=== PATIENT | male | born 1945 | race Caucasian/White ===

== ENCOUNTER 2019-11-23 10:21 | Emergency (ER) | payer OTHER, MEDICARE ==
[2019-11-23 10:37] VITALS: BP 134/82; PULSE 86; RESP 18; TEMP 98.3
--- NOTE | 2019-11-23 11:16 | ED ---
Skin/Abscess/FB HPI - General Chief complaint: Skin/Abscess/Foreign Body Stated complaint: Headache Time Seen by Provider: 11/23/19 10:38 Source: patient Mode of arrival: wheelchair Limitations: no limitations - History of Present Illness Initial comments: Patient is a 73-year-old male presenting to emergency Department with complaints of a pain on the back of his scalp area along with a rash 4 days. Patient states she noticed his scalp felt tender approximately 4-5 days ago and then noticed blisters forming in the same area a day later. Patient states he has pushed on some these blisters may have popped with fluid. Patient states he's been trying to take Tylenol for the discomfort but it's not helping. He denies any trauma to his head or any falls. He denies any fever or chills. He has history of COPD, no changes in his symptoms. Patient denies any chest pain or shortness of breath. Patient has no other complaints. He states he has not had shingles previous. - Related Data Home Medications Medication Instructions Recorded Confirmed Albuterol Inhaler (Mhu) [Ventolin 1 - 2 puff INHALATION RT-Q6H PRN 04/14/17 04/14/17 Hfa Inhaler (Mhu)] Aspirin EC [Ecotrin Low Dose] 81 mg PO DAILY 04/14/17 04/14/17 Besifloxacin HCl [Besivance] 1 drop RIGHT EYE TID 04/14/17 04/14/17 Bromfenac Sodium [Prolensa Ophth 1 drop OPHTHALMIC DAILY 04/14/17 04/14/17 Soln] Difluprednate [Durezol] 1 drop RIGHT EYE DAILY 04/14/17 04/14/17 Fexofenadine HCl [Radha Allergy] 180 mg PO DAILY 04/14/17 04/14/17 PARoxetine HCL [Paxil] 40 mg PO DAILY 04/14/17 04/14/17 Tiotropium 18 Mcg/Puff [Spiriva] 1 cap INHALATION RT-DAILY 04/14/17 04/14/17 traMADol HCL [Ultram] 100 mg PO BID PRN 04/14/17 04/14/17 Previous Rx's Medication Instructions Recorded Metoprolol Tartrate [Lopressor] 25 mg PO BID #60 tab 04/15/17 Rivaroxaban [Xarelto] 20 mg PO DAILY #30 tab 04/15/17 Cephalexin [Keflex] 500 mg PO Q6HR 5 Days #20 cap 11/23/19 Lidocaine 2% Gel [Xylocaine Jelly 1 applic TOPICAL BID PRN #1 tube 11/23/19 2%] valACYclovir HCL [Valtrex] 1,000 mg PO Q8HR 7 Days #21 tab 11/23/19 Allergies Allergy/AdvReac Type Severity Reaction Status Date / Time No Known Allergies Allergy Verified 04/14/17 11:53 Review of Systems ROS Statement: Those systems with pertinent positive or pertinent negative responses have been documented in the HPI. ROS Other: All systems not noted in ROS Statement are negative. 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 HEAD: Atraumatic, normocephalic. EYES: Pupils equal round and reactive to light, extraocular movements intact, sclera anicteric, conjunctiva are normal. ENT: TMs normal, nares patent, oropharynx clear without exudates. Moist mucous membranes. NECK: Normal range of motion, supple without lymphadenopathy or JVD. LUNGS: Breath sounds clear to auscultation bilaterally and equal. No wheezes rales or rhonchi. HEART: Regular rate and rhythm without murmurs, rubs or gallops. ABDOMEN: Soft, nontender, normoactive bowel sounds. No guarding, no rebound. No masses appreciated. : Deferred EXTREMITIES: Normal range of motion, no pitting or edema. No clubbing or cyanosis. NEUROLOGICAL: Cranial nerves II through XII grossly intact. Normal speech, normal gait. PSYCH: Normal mood, normal affect. SKIN: Warm, Dry, normal turgor. Patient has multiple erythematous vesicles on the right posterior aspect of his scalp consistent with shingles virus. A few patches seemed to be draining currently and fluid consistent with a secondary bacterial infection. Limitations: no limitations Course Vital Signs 11/23/19 10:32 Temperature 98.3 F Pulse Rate 86 Respiratory 18 Rate Blood Pressure 134/82 O2 Sat by Pulse 94 L Oximetry Medical Decision Making - Medical Decision Making Patient is 73-year-old male presenting with rash consistent with shingles virus on the right posterior scalp along with a secondary mild bacterial infection. Patient will be started on Keflex, Valtrex, as well as a lidocaine gel for disc omfort. He will continue with Tylenol as needed. He'll follow up with his PCP. Patient is agreement with this plan of care. Return parameters were discussed with the patient and he verbalized understanding. Case discussed with Dr. Denney. Disposition Clinical Impression: Shingles rash, Bacterial skin infection, Headache Disposition: HOME SELF-CARE Condition: Stable Instructions (If sedation given, give patient instructions): Shingles (ED) Additional Instructions: Please return to the Emergency Department if symptoms worsen or any other concerns. Take medications as prescribed. Follow up with PCP. Prescriptions: Cephalexin [Keflex] 500 mg PO Q6HR 5 Days #20 cap valACYclovir HCL [Valtrex] 1,000 mg PO Q8HR 7 Days #21 tab Lidocaine 2% Gel [Xylocaine Jelly 2%] 1 applic TOPICAL BID PRN #1 tube PRN Reason: Pain Is patient prescribed a controlled substance at d/c from ED?: No Referrals: [facility],Clinic [Primary Care Provider] - 1-2 days
== END 2019-11-23 11:32 | disposition home or self-care (01) ==
LOC: EC 10:21 → SUPCPDRO 10:21 → EC 11:32
DX: L08.9 Local infection of the skin and subcutaneous tissue, unspecified (principal); B02.9 Zoster without complications; R51 Headache; J44.9 Chronic obstructive pulmonary disease, unspecified; I10 Essential (primary) hypertension; F17.200 Nicotine dependence, unspecified, uncomplicated; Z79.82 Long term (current) use of aspirin; Z79.899 Other long term (current) drug therapy; Z96.652 Presence of left artificial knee joint
CPT/HCPCS: 99283

== ENCOUNTER 2019-12-25 17:24 | Emergency (ER) | payer OTHER, MEDICARE ==
[2019-12-25 17:39] VITALS: BP 138/88; PULSE 87; RESP 18; TEMP 98
[2019-12-25] MEDS ORDERED: MUPIROCIN 2% OINT 22 GM TUBE TOPICAL STA (17:58)
[2019-12-25] MEDS ORDERED: GABAPENTIN 300 MG CAP PO STA (17:58)
--- NOTE | 2019-12-25 18:02 | ED ---
Skin/Abscess/FB HPI - General Chief complaint: Skin/Abscess/Foreign Body Stated complaint: Shingles Time Seen by Provider: 12/25/19 17:41 Source: patient Mode of arrival: ambulatory Limitations: no limitations - History of Present Illness Initial comments: 74-year-old male patient presents to the emergency department today for evaluation of rash and pain to his right scalp. Patient was seen and evaluated 5 weeks ago and diagnosed with shingles. He did complete oral antibiotics, antivirals, and a tube of lidocaine gel. Patient presents today because he is still having the rash, states his hair still hurts to the touch. States he did have a rash over his right ear but that has resolved. Denies any difficulty with hearing. Denies any numbness to the face. Denies fever or chills. Denies any drainage from the scalp lesions. Patient denies any recent cough, shortness of breath, chest pain, abdominal pain, nausea, vomiting, diarrhea, constipation, back pain, numbness, tingling, dizziness, weakness, hematuria, dysuria, urinary urgency, urinary frequency, visual changes, or any other complaints. - Related Data Home Medications Medication Instructions Recorded Confirmed Albuterol Inhaler (Mhu) [Ventolin 1 - 2 puff INHALATION RT-Q6H PRN 04/14/17 04/14/17 Hfa Inhaler (Mhu)] Aspirin EC [Ecotrin Low Dose] 81 mg PO DAILY 04/14/17 04/14/17 Besifloxacin HCl [Besivance] 1 drop RIGHT EYE TID 04/14/17 04/14/17 Bromfenac Sodium [Prolensa Ophth 1 drop OPHTHALMIC DAILY 04/14/17 04/14/17 Soln] Difluprednate [Durezol] 1 drop RIGHT EYE DAILY 04/14/17 04/14/17 Fexofenadine HCl [Radha Allergy] 180 mg PO DAILY 04/14/17 04/14/17 PARoxetine HCL [Paxil] 40 mg PO DAILY 04/14/17 04/14/17 Tiotropium 18 Mcg/Puff [Spiriva] 1 cap INHALATION RT-DAILY 04/14/17 04/14/17 traMADol HCL [Ultram] 100 mg PO BID PRN 04/14/17 04/14/17 Previous Rx's Medication Instructions Recorded Metoprolol Tartrate [Lopressor] 25 mg PO BID #60 tab 04/15/17 Rivaroxaban [Xarelto] 20 mg PO DAILY #30 tab 04/15/17 Cephalexin [Keflex] 500 mg PO Q6HR 5 Days #20 cap 11/23/19 Lidocaine 2% Gel [Xylocaine Jelly 1 applic TOPICAL BID PRN #1 tube 11/23/19 2%] valACYclovir HCL [Valtrex] 1,000 mg PO Q8HR 7 Days #21 tab 11/23/19 Gabapentin [Neurontin] 300 mg PO TID #30 capsule 12/25/19 Allergies Allergy/AdvReac Type Severity Reaction Status Date / Time No Known Allergies Allergy Verified 12/25/19 17:39 Review of Systems ROS Statement: Those systems with pertinent positive or pertinent negative responses have been documented in the HPI. ROS Other: All systems not noted in ROS Statement are negative. 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" Past Anesthesia/Blood Transfusion Reactions: No Reported Reaction Past Psychological History: Anxiety, Depression Smoking Status: Current every day smoker Past Alcohol Use History: None Reported Past Drug Use History: None Reported - Past Family History Mother History Unknown: Yes Father Family Medical History: Coronary Artery Disease (CAD) Additional Family Medical History / Comment(s): " AGE 47 FROM [place]" General Exam Limitations: no limitations General appearance: alert, in no apparent distress, other (This is a well- developed, well-nourished elderly male patient in no acute distress. Vital signs upon presentation are temperature 98.0F, pulse 87, respirations 18, blood pressure 138/88, pulse ox 96% on room air.) Head exam: Present: other (There are skin ulcerations with pink skin at the base. There are some healing vesicles around the edges. ) Eye exam: Present: normal appearance, PERRL, EOMI. Absent: scleral icterus, conjunctival injection, periorbital swelling ENT exam: Present: normal exam, normal oropharynx, mucous membranes moist, TM's normal bilaterally Respiratory exam: Present: normal lung sounds bilaterally. Absent: respiratory distress, wheezes, rales, rhonchi, stridor Cardiovascular Exam: Present: regular rate, normal rhythm, normal heart sounds. Absent: systolic murmur, diastolic murmur, rubs, gallop, clicks Neurological exam: Present: alert, oriented X3, CN II-XII intact Psychiatric exam: Present: normal affect, normal mood Skin exam: Present: warm, dry, intact, normal color. Absent: rash Course Vital Signs 12/25/19 17:35 Temperature 98 F Pulse Rate 87 Respiratory 18 Rate Blood Pressure 138/88 O2 Sat by Pulse 96 Oximetry Medical Decision Making - Medical Decision Making 74-year-old male patient presents to the emergency department today for reevaluation. He was diagnosed with shingles 5 weeks ago. States he is still having mild rash and pain to the right side of his scalp. Physical examination did reveal some skin ulcerations and healing vesicles. Right eardrum appears normal. Patient's symptoms are consistent with postherpetic neuralgia, we'll start gabapentin. He is given mupirocin ointment to apply twice daily. He is given instructions to follow-up with the radiator mechanic. Return parameters were discussed in detail. He verbalizes understanding and agrees with this plan. Disposition Clinical Impression: Postherpetic neuralgia Disposition: HOME SELF-CARE Condition: Good Instructions (If sedation given, give patient instructions): Shingles (ED) Additional Instructions: Apply ointment to the lesions on her scalp. Take gabapentin for pain control. Follow-up with the radiator mechanic for further evaluation of your scalp. Follow- up through primary care physician for recheck in 1-2 days. Return to the emergency department immediately for any new, worsening, or concerning symptoms. Prescriptions: Gabapentin [Neurontin] 300 mg PO TID #30 capsule Is patient prescribed a controlled substance at d/c from ED?: No Referrals: [facility],Clinic [Primary Care Provider] - 1-2 days Hans Escobar MD [STAFF PHYSICIAN] - 1-2 days Time of Disposition: 18:01
== END 2019-12-25 18:30 | disposition home or self-care (01) ==
LOC: EC 17:24
DX: B02.29 Other postherpetic nervous system involvement (principal); J44.9 Chronic obstructive pulmonary disease, unspecified; I10 Essential (primary) hypertension; F17.200 Nicotine dependence, unspecified, uncomplicated; F41.9 Anxiety disorder, unspecified; M19.90 Unspecified osteoarthritis, unspecified site; F32.9 Major depressive disorder, single episode, unspecified; Z79.899 Other long term (current) drug therapy; Z79.82 Long term (current) use of aspirin; Z79.51 Long term (current) use of inhaled steroids; Z96.652 Presence of left artificial knee joint
CPT/HCPCS: 99282

== ENCOUNTER → 2021-03-08 | Outpatient (CLI) | payer OTHER ==
--- NOTE | 2021-03-08 16:05 | CTL ---
EXAMINATION TYPE: CT Low Dose Lung DATE OF EXAM ORDERED: 03/08/2021 HISTORY: Personal history of tobacco use.. Lung cancer screening CT DLP: [address] CTDI: 3.41 mGy Automated exposure control for dose reduction was used. SCREENING VISIT: Baseline study COMPARISON: None TECHNIQUE: Low dose computed tomography scan was performed through the chest at 1 mm thick sections a nd reconstructed images in the coronal plane at [address] DIAGNOSTIC QUALITY: Limited, but interpretable; borderline nondiagnostic. Due to body habitus and low dose technique. FINDINGS: LUNG NODULES: None. No definitive nodules greater than 8 mm LUNGS: COPD: Severity: Mild to moderate Fibrosis: Severity: [id number] Peripheral fibrotic changes in the lower lungs. Lymph nodes: Suboptimal evaluation for hilar lymph nodes. Prominent borderline enlarged right tracheo bronchial lymph node axial image 22 series 3. Other findings: Prominent main pulmonary artery of 4.0 cm axial image 27 series 3 suggesting underlyi ng pulmonary artery hypertension. RIGHT PLEURAL SPACE: Effusion: None Calcification: None Thickening: None Pneumothorax: None LEFT PLEURAL SPACE: Effusion: None Calcification: None Thickening: None Pneumothorax: None HEART: Heart Size: None Coronary calcification: Severe three-vessel Pericardial effusion: None OTHER FINDINGS: Upper abdomen: None Bony thorax: Mild multilevel spurring. Supraclavicular region: None Other: None IMPRESSION: Suboptimal study without concerning greater than [address] LUNG RAD AND CT CHEST RECOMMENDATION: Lung-Rad 2 Benign Appearance or Behavior: Continue annual sc reening with LDCT in 12 months. S Modifier (other clinically significant findings): S Severe three-vessel coronary artery calcification, correlate with additional cardiac risk factors. In this patient with extensive artifact I would advise diagnostic CT over low dose CT monitoring to better evaluate.
== END | disposition home or self-care (01) ==
LOC: RADCTMAIN 14:03
DX: Z12.2 Encounter for screening for malignant neoplasm of respiratory organs (principal); Z87.891 Personal history of nicotine dependence
CPT/HCPCS: 71271

== ENCOUNTER 2021-04-16 14:18 | Emergency (ER) | payer OTHER ==
[2021-04-16] MEDS ORDERED: LIDOCAINE 1% INJ 10MG/ML (20 ML MDV) SQ ONE (16:31)
[2021-04-16] MEDS ORDERED: SULFAMETHOX-TMP 800-160MG 1 EACH TAB PO STA (16:31)
[2021-04-16] MEDS ORDERED: CEPHALEXIN 500 MG CAP PO STA (16:31)
--- NOTE | 2021-04-16 17:32 | ED ---
Skin/Abscess/FB HPI - General Chief complaint: Skin/Abscess/Foreign Body Stated complaint: Abscess/Cellulitis, scrotum Time Seen by Provider: 04/16/21 14:25 Source: patient Mode of arrival: ambulatory Limitations: no limitations - History of Present Illness Initial comments: 75-year-old male presents emergency Department with reported abscess to his rig ht scrotum. Patient states that he's had the lesion there for approximately one year. Reports that it will occasionally drain improve in size. States that for the past 3 days it has increased in size. Was originally draining however stopped. Patient is not a diabetic. Denies fevers or chills. No testicular or peritoneal pain. He went to the urgent care and was told to come into the ED for further treatment. Denies history of kidney disease or MRSA. No other alleviating, precipitating or modifying factors - Related Data Home Medications Medication Instructions Recorded Confirmed Albuterol Inhaler (Mhu) [Ventolin 1 - 2 puff INHALATION RT-Q6H PRN 04/14/17 04/14/17 Hfa Inhaler (Mhu)] Aspirin EC [Ecotrin Low Dose] 81 mg PO DAILY 04/14/17 04/14/17 Besifloxacin HCl [Besivance] 1 drop RIGHT EYE TID 04/14/17 04/14/17 Bromfenac Sodium [Prolensa Ophth 1 drop OPHTHALMIC DAILY 04/14/17 04/14/17 Soln] Difluprednate [Durezol] 1 drop RIGHT EYE DAILY 04/14/17 04/14/17 Fexofenadine HCl [Radha Allergy] 180 mg PO DAILY 04/14/17 04/14/17 PARoxetine HCL [Paxil] 40 mg PO DAILY 04/14/17 04/14/17 Tiotropium 18 Mcg/Puff [Spiriva] 1 cap INHALATION RT-DAILY 04/14/17 04/14/17 traMADol HCL [Ultram] 100 mg PO BID PRN 04/14/17 04/14/17 Previous Rx's Medication Instructions Recorded Metoprolol Tartrate [Lopressor] 25 mg PO BID #60 tab 04/15/17 Rivaroxaban [Xarelto] 20 mg PO DAILY #30 tab 04/15/17 Cephalexin [Keflex] 500 mg PO Q6HR 5 Days #20 cap 11/23/19 Lidocaine 2% Gel [Xylocaine Jelly 1 applic TOPICAL BID PRN #1 tube 11/23/19 2%] valACYclovir HCL [Valtrex] 1,000 mg PO Q8HR 7 Days #21 tab 11/23/19 Gabapentin [Neurontin] 300 mg PO TID #30 capsule 12/25/19 Cephalexin [Keflex] 500 mg PO Q6HR #28 cap 04/16/21 HYDROcodone/APAP 5-325MG [[place] 5] 1 each PO Q6HR PRN #12 tab 04/16/21 Sulfamethox-Tmp 800-160Mg [Bactrim 2 tab PO Q12HR #28 tab 04/16/21 DS 800-160 mg] HYDROcodone/APAP 5-325MG [[place] 5] 1 each PO Q6HR PRN #12 tab 04/18/21 Allergies Allergy/AdvReac Type Severity Reaction Status Date / Time No Known Allergies Allergy Verified 04/18/21 18:33 Review of Systems ROS Statement: Those systems with pertinent positive or pertinent negative responses have been documented in the HPI. ROS Other: All systems not noted in ROS Statement are negative. 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 Absent: respiratory distress, wheezes, rales, rhonchi, stridor Cardiovascular Exam: Present: regular rate, normal rhythm, normal heart sounds. Absent: systolic murmur, diastolic murmur, rubs, gallop, clicks GI/Abdominal exam: Present: soft, normal bowel sounds. Absent: distended, tenderness, guarding, rebound, rigid exam: Present: scrotal swelling, other (right scrotum markedly enlarged, indurated with brawny edema. Erythema consistent with cellulitis. Fluctuance appreciated - abscess approximately 8 x 6 cm. Testicles appear symmetric bilat erally) Course Vital Signs 04/16/21 04/16/21 14:21 18:02 Temperature 98.5 F 98.7 F Pulse Rate 96 92 Respiratory 20 17 Rate Blood Pressure 159/104 168/78 O2 Sat by Pulse 98 99 Oximetry Procedures - Incision & Drainage Consent Obtained: verbal consent Site: scrotum Size (cm): 8 Anesthetic Used: lidocaine 1%, without epi I&D Cleaning Method: Chloroprep Sterile Field Used?: Yes Scalpel Used: #11 Needle Aspiration Performed?: No Irrigation Performed?: No I&D Drainage Obtained: Pus Packing: Iodoform Culture Obtained?: No Patient Tolerated Procedure: well, no complications Medical Decision Making - Medical Decision Making Upon arrival patient placed into room 24. Through history and physical exam is performed. Patient does have a large scrotal abscess which is anesthetized and drained. Wound is packed. Patient instructed to keep the packing in place for 24 hours. He is given a dose of Keflex and Bactrim in the emergency room. Patient was placed on these medications as well as [place] for pain control. He must follow up with his primary care doctor within 72 hours for wound re- evaluation. If the patient has no improvement or has any worsening symptoms, he must return to the ED. patient agree to this was given written and verbal discharge instructions and discharged home in stable condition Disposition Clinical Impression: Scrotal abscess Disposition: HOME SELF-CARE Condition: Stable Instructions (If sedation given, give patient instructions): Abscess Incision and Drainage (ED), Abscess (ED) Additional Instructions: Please see your doctor this week for reevaluation. Pull out the packing within 24 hours. If you think your symptoms are getting worse between 48-72 hours, please return to the emergency department Prescriptions: Sulfamethox-Tmp 800-160Mg [Bactrim DS 800-160 mg] 2 tab PO Q12HR #28 tab Cephalexin [Keflex] 500 mg PO Q6HR #28 cap HYDROcodone/APAP 5-325MG [[place] 5] 1 each PO Q6HR PRN #12 tab PRN Reason: Pain Is patient prescribed a controlled substance at d/c from ED?: Yes When asked, does pt state using other controlled substances?: No If prescribed controlled substance>3 days was MAPS reviewed?: Prescribed <3 Days If opioid is for acute pain is fill amount 7 days or less?: Yes If Rx opioid, was Start Talking consent form obtained?: Yes Referrals: [facility],Clinic [Primary Care Provider] - 1-2 days Time of Disposition: 17:31
[2021-04-16 18:03] VITALS: BP 168/78; PULSE 92; RESP 17; TEMP 98.7
== END 2021-04-16 18:03 | disposition home or self-care (01) ==
LOC: EC 14:18
DX: N49.2 Inflammatory disorders of scrotum (principal); J44.9 Chronic obstructive pulmonary disease, unspecified; I10 Essential (primary) hypertension; M19.90 Unspecified osteoarthritis, unspecified site; F17.200 Nicotine dependence, unspecified, uncomplicated; Z79.82 Long term (current) use of aspirin
CPT/HCPCS: 99283; 55100; J2001

== ENCOUNTER 2021-04-18 17:48 | Emergency (ER) | payer OTHER ==
[2021-04-18 18:33] VITALS: TEMP 98.4
--- NOTE | 2021-04-18 20:13 | ED ---
Skin/Abscess/FB HPI - General Chief complaint: Skin/Abscess/Foreign Body Stated complaint: Cyst on buttocks Time Seen by Provider: 04/18/21 19:35 Source: patient Mode of arrival: ambulatory Limitations: no limitations - History of Present Illness Initial comments: 75 year-old male patient presents to have packing removed from abscess to his scrotum. Patient states he was seen here two days ago and had an abscess drained. He had packing placed. When he went to take the packing out today he could not find it nor remove it on his own. Patient states that the area is still draining quite a bit of fluid. States it is painful, but much better since it was drained. He is still taking antibiotics. He has not yet followed up with his physician. He denies any fevers or vomiting. - Related Data Home Medications Medication Instructions Recorded Confirmed Albuterol Inhaler (Mhu) [Ventolin 1 - 2 puff INHALATION RT-Q6H PRN 04/14/17 04/14/17 Hfa Inhaler (Mhu)] Aspirin EC [Ecotrin Low Dose] 81 mg PO DAILY 04/14/17 04/14/17 Besifloxacin HCl [Besivance] 1 drop RIGHT EYE TID 04/14/17 04/14/17 Bromfenac Sodium [Prolensa Ophth 1 drop OPHTHALMIC DAILY 04/14/17 04/14/17 Soln] Difluprednate [Durezol] 1 drop RIGHT EYE DAILY 04/14/17 04/14/17 Fexofenadine HCl [Radha Allergy] 180 mg PO DAILY 04/14/17 04/14/17 PARoxetine HCL [Paxil] 40 mg PO DAILY 04/14/17 04/14/17 Tiotropium 18 Mcg/Puff [Spiriva] 1 cap INHALATION RT-DAILY 04/14/17 04/14/17 traMADol HCL [Ultram] 100 mg PO BID PRN 04/14/17 04/14/17 Previous Rx's Medication Instructions Recorded Metoprolol Tartrate [Lopressor] 25 mg PO BID #60 tab 04/15/17 Rivaroxaban [Xarelto] 20 mg PO DAILY #30 tab 04/15/17 Cephalexin [Keflex] 500 mg PO Q6HR 5 Days #20 cap 11/23/19 Lidocaine 2% Gel [Xylocaine Jelly 1 applic TOPICAL BID PRN #1 tube 05/26/20 2%] valACYclovir HCL [Valtrex] 1,000 mg PO Q8HR 7 Days #21 tab 11/23/19 Gabapentin [Neurontin] 300 mg PO TID #30 capsule 12/25/19 Cephalexin [Keflex] 500 mg PO Q6HR #28 cap 04/16/21 HYDROcodone/APAP 5-325MG [[place] 5] 1 each PO Q6HR PRN #12 tab 04/16/21 Sulfamethox-Tmp 800-160Mg [Bactrim 2 tab PO Q12HR #28 tab 04/16/21 DS 800-160 mg] HYDROcodone/APAP 5-325MG [[place] 5] 1 each PO Q6HR PRN #12 tab 04/18/21 Allergies Allergy/AdvReac Type Severity Reaction Status Date / Time No Known Allergies Allergy Verified 04/18/21 18:33 Review of Systems ROS Statement: Those systems with pertinent positive or pertinent negative responses have been documented in the HPI. ROS Other: All systems not noted in ROS Statement are negative. 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" Past Anesthesia/Blood Transfusion Reactions: No Reported Reaction Past Psychological History: Anxiety, Depression Smoking Status: Current every day smoker Past Alcohol Use History: Occasional Past Drug Use History: None Reported - Past Family History Mother History Unknown: Yes Father Family Medical History: Coronary Artery Disease (CAD) Additional Family Medical History / Comment(s): " AGE 47 FROM HARDENOING OF THE ARTERIES" General Exam Limitations: no limitations General appearance: alert, in no apparent distress, other (Physical well- developed, well-nourished adult male patient in no acute distress.) Respiratory exam: Present: normal lung sounds bilaterally. Absent: respiratory distress, wheezes, rales, rhonchi, stridor Cardiovascular Exam: Present: regular rate, normal rhythm, normal heart sounds. Absent: systolic murmur, diastolic murmur, rubs, gallop, clicks GI/Abdominal exam: Present: soft, normal bowel sounds. Absent: distended, tenderness, guarding, rebound, rigid exam: Present: scrotal swelling, other (There is right sided scrotal swelling, erythema and induration. There is open draining wound, fluid is yellow in color. Area is tender to touch. No packing material in wound.). Absent: normal inspection Neurological exam: Present: alert, oriented X3, CN II-XII intact Psychiatric exam: Present: normal affect, normal mood Skin exam: Present: warm, dry, intact, normal color. Absent: rash Course Vital Signs 04/18/21 04/18/21 18:30 20:17 Temperature 98.4 F Pulse Rate 96 77 Respiratory 19 16 Rate Blood Pressure 131/82 145/78 O2 Sat by Pulse 97 94 L Oximetry Medical Decision Making - Medical Decision Making 75 year-old male patient presents to the emergency department to have packing removed from an abscess. This was drained and packed by Dr. Barone here in this department two days ago. Patient was unable to find the packing on his own at home. Physical examination did reveal right sided scrotal swelling, erythema, and induration. There was yellow fluid draining from the site. No packing material was seen in the wound. I did explore the wound with forceps. Patient was given refill of his pain medication. Urged to complete his antibiotics and to follow up with his PCP. He is instructed to return immediately if symptoms worsen, he develops, fever, or vomiting. He is in agreement with this plan. Case discussed with my attending Dr. Abel. Disposition Clinical Impression: Encounter for wound re-check Disposition: HOME SELF-CARE Condition: Good Instructions (If sedation given, give patient instructions): Abscess (ED) Additional Instructions: Apply warm compresses over the area. Promote drainage. Complete antibiotic prescriptions in full. Take pain medication sparingly as needed for severe pain. Follow-up with your primary care physician for recheck in 1-2 days. Return for any new, worsening, or concerning symptoms. Prescriptions: HYDROcodone/APAP 5-325MG [[place] 5] 1 each PO Q6HR PRN #12 tab PRN Reason: Pain Is patient prescribed a controlled substance at d/c from ED?: No Referrals: [facility],Clinic [Primary Care Provider] - 1-2 days Time of Disposition: 20:11
[2021-04-18 20:18] VITALS: BP 145/78; PULSE 77; RESP 16
== END 2021-04-18 20:17 | disposition home or self-care (01) ==
LOC: EC 17:48
DX: Z48.00 Encounter for change or removal of nonsurgical wound dressing (principal); J44.9 Chronic obstructive pulmonary disease, unspecified; I10 Essential (primary) hypertension; M19.90 Unspecified osteoarthritis, unspecified site; F17.200 Nicotine dependence, unspecified, uncomplicated; Z79.51 Long term (current) use of inhaled steroids; Z79.82 Long term (current) use of aspirin
CPT/HCPCS: 99282